=== PATIENT | female | born 1960 | race Caucasian/White ===

== ENCOUNTER 2017-08-16 16:21 | Observation (INO) | payer BC ==
[~2017-08-16] VITALS: Ht 160 cm; Wt 67.2 kg
[~2017-08-16 16:21] MED LIST: Colace PO; Effexor PO; Miralax, Glycolax PO; Motrin PO; Mylicon,Mylanta Gas, PO; Percocet 5/325,Endoc PO; SYNTHROID100 MCG PO
[2017-08-16 17:24] LABS: HEMATOCRIT 43.4 % (36.0-46.0); HEMOGLOBIN 15.3 G/DL (11.9-15.5); MCH 31.4 PG (29.0-34.0); MCHC 35.3 G/DL (30.0-36.0); MCV 88.9 FL (83-99); PLATELET COUNT 406 K/uL (156-360); RBC DIS.WIDTH-CV 11.9 % (11.8-14.6); RBC DIS.WIDTH-SD 38.5 % (39-53); RED BLOOD COUNT 4.88 M/uL (3.80-5.20); WHITE BLOOD COUNT 16.1 K/uL (4.1-10.2)
[2017-08-16 17:37] LABS: CHLORIDE 96 mEq/L (99-109); POTASSIUM 3.5 mEq/L (3.7-5.4); SODIUM 132 mEq/L (136-147)
[2017-08-16 17:39] LABS: GLUCOSE 125 mg/dL (70-99)
[2017-08-16 17:43] LABS: CREATININE 0.8 mg/dL (0.6-1.3); GFR ESTIMATE (CALCULATED) > 59 mL/min/
[2017-08-16 17:44] LABS: UREA NITROGEN (BUN) 10 mg/dL (9-23)
[2017-08-16 18:55] LABS: TROP-I INTERPRETATION NEGATIVE; TROPONIN-I < 0.01 ng/mL (0.0-0.30)
[2017-08-16] MEDS ORDERED: VITAMIN B-625 MG PO (19:34)
[2017-08-16] MEDS ORDERED: VIIBRYD40 MG PO (19:34)
[2017-08-16 22:40] VITALS: BP 110/60
[2017-08-17 01:14] LABS: TROP-I INTERPRETATION NEGATIVE; TROPONIN-I < 0.01 ng/mL (0.0-0.30)
[2017-08-17 04:00] VITALS: BP 104/58
[2017-08-17 05:36] LABS: HEMATOCRIT 43.4 % (36.0-46.0); HEMOGLOBIN 14.6 G/DL (11.9-15.5); MCH 30.5 PG (29.0-34.0); MCHC 33.6 G/DL (30.0-36.0); MCV 90.8 FL (83-99); PLATELET COUNT 390 K/uL (156-360); RBC DIS.WIDTH-CV 12.1 % (11.8-14.6); RBC DIS.WIDTH-SD 40.5 % (39-53); RED BLOOD COUNT 4.78 M/uL (3.80-5.20); WHITE BLOOD COUNT 8.1 K/uL (4.1-10.2)
[2017-08-17 05:53] LABS: TROP-I INTERPRETATION NEGATIVE; TROPONIN-I < 0.01 ng/mL (0.0-0.30)
[2017-08-17 06:23] LABS: CHLORIDE 105 MEQ/L (99-109)
[2017-08-17 06:26] LABS: POTASSIUM 4.4 MEQ/L (3.7-5.4); SODIUM 141 MEQ/L (136-147)
[2017-08-17 06:28] LABS: CREATININE 0.8 MG/DL (0.6-1.3); GFR ESTIMATE (CALCULATED) > 59 mL/min/; GLUCOSE 104 mg/dL (70-99); HDL CHOLESTEROL 63 MG/DL (Desirable>=50); LDL CHOLESTEROL 82 mg/dL (Desirable<100); NON-HDL CHOLESTEROL 94 mg/dL (Desirable<160); TOTAL CHOLESTEROL 157 mg/dL (Desirable<200); TRIGLYCERIDES 62 MG/DL (Normal: <150); UREA NITROGEN (BUN) 9 mg/dL (9-23)
[2017-08-17 08:06] VITALS: BP 123/79
[2017-08-17 08:12] LABS: THYROTROPIN (TSH) 5.4 MIU/L (0.4-5.5)
[2017-08-17 11:07] VITALS: BP 148/64
[2017-08-17 12:09] LABS: APPEARANCE CLEAR ((CLEAR)); BILIRUBIN NEGATIVE; BLOOD SMALL; COLOR STRAW ((YELLOW)); GLUCOSE (STRIP) NEGATIVE; KETONES NEGATIVE; LEUKOCYTES NEGATIVE; NITRITE NEGATIVE; PROTEIN (STRIP) NEGATIVE; SPECIFIC GRAVITY 1.006 (1.000-1.030); UROBILINOGEN 0.2 MG/DL (0.2-1.0)
[2017-08-17 12:12] LABS: BACTERIA NONE SEEN /HPF; EPITHELIAL CELLS RARE /HPF; MUCUS TRACE /LPF; RED BLOOD CELLS 0-5 /HPF (0-5); UCUL ADDED? NO; WHITE BLOOD CELLS 0-5 /HPF (0-5)
[2017-08-17] MEDS ORDERED: ASPIR-LOW81 MG PO (12:47)
[2017-08-17] MEDS ORDERED: LOPRESSOR25 MG PO (14:22)
[2017-08-18] MEDS ORDERED: ATIVAN1 MG PO (22:44)
== END 2017-08-17 16:36 | disposition home or self-care (01) ==
LOC: EME 16:21 → EDOF 20:35 → 5WEST 20:35 → EDOF 20:35 → ENRESERV 20:37 → 5WEST 21:18
PROVIDERS: Nurse Practitioner Family; Physician Assistant Medical
DX: R00.2 Palpitations (principal); R55 Syncope and collapse; R07.2 Precordial pain; R41.0 Disorientation, unspecified; D72.829 Elevated white blood cell count, unspecified; R79.89 Other specified abnormal findings of blood chemistry; E87.1 Hypo-osmolality and hyponatremia; E87.6 Hypokalemia; I47.1 Supraventricular tachycardia; R00.1 Bradycardia, unspecified; F41.9 Anxiety disorder, unspecified; E89.0 Postprocedural hypothyroidism; K21.9 Gastro-esophageal reflux disease without esophagitis; F17.210 Nicotine dependence, cigarettes, uncomplicated; Z90.710 Acquired absence of both cervix and uterus; Z82.49 Family history of ischemic heart disease and other diseases of the circulatory system; Z82.3 Family history of stroke
CPT/HCPCS: 70450; 71046; 80048; 80061; 81003; 83735; 84443; 84484; 85027; 85730; 93005; 93306; 95819; G0378; J1650; J3480; J7030

== ENCOUNTER 2017-08-18 17:31 | Emergency (ER) | payer BC ==
[~2017-08-18] VITALS: Ht 165.1 cm; Wt 69.4 kg
[~2017-08-18 17:31] MED LIST changes: +ASPIR-LOW81 MG PO; +LOPRESSOR25 MG PO; +VIIBRYD40 MG PO; +VITAMIN B-625 MG PO
[2017-08-18 18:54] LABS: HEMATOCRIT 44.2 % (36.0-46.0); HEMOGLOBIN 15.5 G/DL (11.9-15.5); MCH 31.4 PG (29.0-34.0); MCHC 35.1 G/DL (30.0-36.0); MCV 89.7 FL (83-99); PLATELET COUNT 397 K/uL (156-360); RBC DIS.WIDTH-SD 39.5 % (39-53); RED BLOOD COUNT 4.93 M/uL (3.80-5.20); WHITE BLOOD COUNT 13.2 K/uL (4.1-10.2)
[2017-08-18 19:06] LABS: CHLORIDE 105 mEq/L (99-109); POTASSIUM 3.6 mEq/L (3.7-5.4); SODIUM 139 mEq/L (136-147)
[2017-08-18 19:08] LABS: GLUCOSE 138 mg/dL (70-99)
[2017-08-18 19:11] LABS: SERUM ETHYL ALCOHOL < 10 mg/dL
[2017-08-18 19:12] LABS: CREATININE 0.8 mg/dL (0.6-1.3); GFR ESTIMATE (CALCULATED) > 59 mL/min/
[2017-08-18 19:13] LABS: UREA NITROGEN (BUN) 12 mg/dL (9-23)
[2017-08-18 20:37] LABS: AMPHETAMINE NEGATIVE (500 ng/mL); BARBITURATES NEGATIVE (200 ng/mL); BENZODIAZEPINES NEGATIVE (150 ng/mL); BUPRENORPHINE NEGATIVE (10 ng/mL); COCAINE NEGATIVE (150 ng/mL); METHADONE NEGATIVE (200 ng/mL); METHAMPHETAMINE NEGATIVE (500 ng/mL); OPIATES (MORPHINE) NEGATIVE (100 ng/mL); OXYCODONE NEGATIVE (100 ng/mL); PHENCYCLIDINE NEGATIVE (25 ng/mL); PROPOXYPHENE NEGATIVE (300 ng/mL); THC CANNABINOIDS NEGATIVE (50 ng/mL); TRICYCLIC ANTIDEPRESSANTS NEGATIVE (300 ng/mL)
[2017-08-18] MEDS ORDERED: ATIVAN1 MG PO (22:44)
[2017-08-18 23:00] VITALS: BP 93/63
== END 2017-08-18 23:00 | disposition home or self-care (01) ==
LOC: EME 17:31
PROVIDERS: Emergency Medicine Emergency Medical Services
DX: F32.9 Major depressive disorder, single episode, unspecified (principal); R44.0 Auditory hallucinations; F41.1 Generalized anxiety disorder; Z91.81 History of falling; E03.9 Hypothyroidism, unspecified; Z87.891 Personal history of nicotine dependence
CPT/HCPCS: 70450; 80048; 85027; 90839; G0480; J1630

== ENCOUNTER 2017-10-23 13:28 | Observation (INO) | payer BC ==
[~2017-10-23] VITALS: Ht 160 cm; Wt 69.2 kg
[~2017-10-23 13:28] MED LIST changes: +ATIVAN1 MG PO
[2017-10-23 14:50] LABS: HEMATOCRIT 45.8 % (36.0-46.0); HEMOGLOBIN 15.6 G/DL (11.9-15.5); MCH 31.4 PG (29.0-34.0); MCHC 34.1 G/DL (30.0-36.0); MCV 92.2 FL (83-99); PLATELET COUNT 330 K/uL (156-360); RBC DIS.WIDTH-CV 12.2 % (11.8-14.6); RBC DIS.WIDTH-SD 41.6 % (39-53); RED BLOOD COUNT 4.97 M/uL (3.80-5.20); WHITE BLOOD COUNT 9.6 K/uL (4.1-10.2)
[2017-10-23 14:58] LABS: CHLORIDE 105 mEq/L (99-109); POTASSIUM 3.8 mEq/L (3.7-5.4); SODIUM 143 mEq/L (136-147)
[2017-10-23 15:00] LABS: GLUCOSE 89 mg/dL (70-99)
[2017-10-23 15:03] LABS: SERUM ETHYL ALCOHOL < 10 mg/dL
[2017-10-23 15:04] LABS: CREATININE 0.8 mg/dL (0.6-1.3); GFR ESTIMATE (CALCULATED) > 59 mL/min/
[2017-10-23 15:05] LABS: UREA NITROGEN (BUN) 20 mg/dL (9-23)
[2017-10-23 16:09] LABS: AMPHETAMINE NEGATIVE (500 ng/mL); BARBITURATES NEGATIVE (200 ng/mL); BENZODIAZEPINES NEGATIVE (150 ng/mL); BUPRENORPHINE NEGATIVE (10 ng/mL); COCAINE NEGATIVE (150 ng/mL); METHADONE NEGATIVE (200 ng/mL); METHAMPHETAMINE NEGATIVE (500 ng/mL); OPIATES (MORPHINE) NEGATIVE (100 ng/mL); OXYCODONE NEGATIVE (100 ng/mL); PHENCYCLIDINE NEGATIVE (25 ng/mL); PROPOXYPHENE NEGATIVE (300 ng/mL); TRICYCLIC ANTIDEPRESSANTS NEGATIVE (300 ng/mL)
[2017-10-23 16:25] LABS: THC CANNABINOIDS NEGATIVE (50 ng/mL)
[2017-10-23 19:35] LABS: THYROTROPIN (TSH) 69.4 MIU/L (0.4-5.5)
[2017-10-24 01:54] VITALS: BP 80/42
[2017-10-24 03:36] VITALS: BP 123/53
[2017-10-24 07:36] VITALS: BP 94/59
[2017-10-24 09:17] LABS: C-REACTIVE PROTEIN 1.2 MG/L (0-10)
[2017-10-24 09:36] LABS: FOLIC ACID (FOLATE) 21.1 NG/ML (5.0-22.0)
[2017-10-24 11:13] VITALS: BP 83/46
[2017-10-24 17:06] VITALS: BP 106/56
[2017-10-24 20:22] VITALS: BP 93/51
[2017-10-25] VITALS: BP 114/57
[2017-10-25 08:35] VITALS: BP 116/56
[2017-10-25 09:48] VITALS: BP 92/53
[2017-10-25 12:47] VITALS: BP 96/55
[2017-10-25 18:02] VITALS: BP 103/60
[2017-10-25 20:00] VITALS: BP 80/60
[2017-10-26] VITALS (7 sets, daily range): BP systolic 93–112; BP diastolic 52–74
[2017-10-26 06:21] LABS: BASOPHIL (%) 0.5 % (0-1); EOSINOPHIL (%) 1.1 % (0-5); EOSINOPHIL COUNT 0.1 K/uL (0-0.3); HEMATOCRIT 40.4 % (36.0-46.0); IMMATURE GRANULOCYTE (%) 0.1 % (0.0-0.7); LYMPHOCYTE (%) 28.4 % (15-42); LYMPHOCYTE COUNT 2.1 K/uL (1.0-2.8); MCHC 33.4 G/DL (30.0-36.0); MCV 92.9 FL (83-99); MONOCYTE (%) 6.9 % (3-12); MONOCYTE COUNT 0.5 K/uL (0-0.8); NEUTROPHIL COUNT 4.6 K/uL (1.8-6.4); PLATELET COUNT 265 K/uL (156-360); RBC DIS.WIDTH-CV 12.4 % (11.8-14.6); RBC DIS.WIDTH-SD 42.7 % (39-53); RED BLOOD COUNT 4.35 M/uL (3.80-5.20); WHITE BLOOD COUNT 7.4 K/uL (4.1-10.2)
[2017-10-26 06:22] LABS: HEMOGLOBIN 13.5 G/DL (11.9-15.5)
[2017-10-26 06:37] LABS: CHLORIDE 107 MEQ/L (99-109); CREATININE 0.8 MG/DL (0.6-1.3); GFR ESTIMATE (CALCULATED) > 59 mL/min/; GLUCOSE 95 mg/dL (70-99); SODIUM 145 MEQ/L (136-147); UREA NITROGEN (BUN) 10 mg/dL (9-23)
[2017-10-26 16:57] LABS: CSF PROTEIN 54 mg/dL (15-45)
[2017-10-26 17:02] LABS: GLUCOSE, CSF 75 mg/dL (40-80)
[2017-10-26 17:27] LABS: APPEARANCE CLEAR/COLORLESS; CSF TUBE NUMBER TUBE #4
[2017-10-26 17:28] LABS: RED CELL COUNT 26 /MM^3 (0-1); WHITE CELL COUNT 2 /MM^3 (0-5)
[2017-10-26 17:38] LABS: CSF EOSINOPHILS ND % (0-25); MONONUCLEAR WBC'S ND % (50-90); POLYNUCLEAR WBC'S ND % (0-3)
[2017-10-26 22:58] LABS: APPEARANCE (RECHECK) CLEAR/COLORLESS; CSF TUBE NUMBER (RECHECK) TUBE #1; RED CELL COUNT (RECHECK) 1 /MM^3 (0-1)
[2017-10-27 03:24] VITALS: BP 118/59
[2017-10-27 07:27] VITALS: BP 118/65
[2017-10-27] MEDS ORDERED: ESCITALOPRAM OX10 MG PO (15:44)
== END 2017-10-27 16:54 | disposition home or self-care (01) ==
LOC: EME 13:28 → EDOF 10-24 00:05 → 5WEST 10-24 00:05 → ENRESERV 10-24 00:16 → 5WEST 10-24 01:47 → ENPENDDIS 10-27 → 5WEST 10-27 16:54
PROVIDERS: Emergency Medicine Emergency Medical Services; Hospitalist; Specialist
DX: F01.50 Vascular dementia, unspecified severity, without behavioral disturbance, psychotic disturbance, mood disturbance, and anxiety (principal); F32.9 Major depressive disorder, single episode, unspecified; F41.1 Generalized anxiety disorder; E89.0 Postprocedural hypothyroidism; Z91.14 Patient's other noncompliance with medication regimen; I47.1 Supraventricular tachycardia; K21.9 Gastro-esophageal reflux disease without esophagitis; F17.290 Nicotine dependence, other tobacco product, uncomplicated; Z90.710 Acquired absence of both cervix and uterus; Z82.49 Family history of ischemic heart disease and other diseases of the circulatory system; Z79.899 Other long term (current) drug therapy
CPT/HCPCS: 62270; 70553; 71046; 77003; 80048; 82040 90; 82042 90; 82607; 82746; 82784 90; 82945; 83873 90; 84157; 84439; 84443; 85025; 85027; 85651; 86038; 86140; 86235; 89051; 99281; 99285; G0378; G0480; J2060; J7030

== ENCOUNTER 2017-11-16 15:20 | Inpatient (IN) | payer BC ==
[~2017-11-16] VITALS: Ht 165.1 cm; Wt 59.1 kg
[~2017-11-16 15:20] MED LIST changes: +ESCITALOPRAM OX10 MG PO
[2017-11-16 16:21] LABS: BASOPHIL (%) 0.2 % (0-1); EOSINOPHIL (%) 0.2 % (0-5); HEMATOCRIT 42.6 % (36.0-46.0); HEMOGLOBIN 14.6 G/DL (11.9-15.5); IMMATURE GRANULOCYTE (%) 0.3 % (0.0-0.7); LYMPHOCYTE (%) 17.6 % (15-42); LYMPHOCYTE COUNT 1.1 K/uL (1.0-2.8); MCH 31.1 PG (29.0-34.0); MCHC 34.3 G/DL (30.0-36.0); MCV 90.6 FL (83-99); MONOCYTE (%) 4.4 % (3-12); MONOCYTE COUNT 0.3 K/uL (0-0.8); NEUTROPHIL (%) 77.3 % (45-76); NEUTROPHIL COUNT 4.9 K/uL (1.8-6.4); PLATELET COUNT 300 K/uL (156-360); RBC DIS.WIDTH-SD 40.1 % (39-53); WHITE BLOOD COUNT 6.4 K/uL (4.1-10.2)
[2017-11-16 16:31] LABS: CHLORIDE 104 mEq/L (99-109); POTASSIUM 3.8 mEq/L (3.7-5.4); SODIUM 143 mEq/L (136-147)
[2017-11-16 16:33] LABS: GLUCOSE 94 mg/dL (70-99)
[2017-11-16 16:36] LABS: SERUM ETHYL ALCOHOL < 10 mg/dL
[2017-11-16 16:37] LABS: CREATININE 0.8 mg/dL (0.6-1.3); GFR ESTIMATE (CALCULATED) > 59 mL/min/
[2017-11-16 16:39] LABS: UREA NITROGEN (BUN) 17 mg/dL (9-23)
[2017-11-16 16:40] LABS: ACETAMINOPHEN (TYLENOL) < 10 mcg/mL (10-30); SALICYLATE < 5.0 MG/DL (15-30)
[2017-11-16 17:27] LABS: THYROTROPIN (TSH) 25.6 MIU/L (0.4-5.5)
[2017-11-16 19:21] VITALS: BP 129/60
[2017-11-17 08:04] VITALS: BP 105/56
[2017-11-17 15:47] VITALS: BP 89/54
[2017-11-18 07:37] VITALS: BP 119/58
[2017-11-18 15:49] VITALS: BP 99/55
[2017-11-19 07:48] VITALS: BP 97/52
[2017-11-19 15:42] VITALS: BP 101/54
[2017-11-20 09:33] VITALS: BP 117/58
[2017-11-20 15:55] VITALS: BP 101/63
[2017-11-21 09:59] VITALS: BP 86/52
[2017-11-21 16:32] VITALS: BP 100/59
[2017-11-22 08:41] VITALS: BP 124/56
[2017-11-22 16:03] VITALS: BP 91/52
[2017-11-23 07:54] VITALS: BP 103/59
[2017-11-23 15:39] VITALS: BP 105/59
[2017-11-24 07:53] VITALS: BP 100/56
[2017-11-24 15:30] VITALS: BP 95/53
[2017-11-25 07:53] VITALS: BP 110/65
[2017-11-25 16:07] VITALS: BP 105/55
[2017-11-26 08:20] VITALS: BP 112/60
[2017-11-26 16:09] VITALS: BP 97/52
[2017-11-26 19:58] VITALS: BP 113/52
[2017-11-27 07:59] VITALS: BP 120/64
[2017-11-27 15:53] VITALS: BP 120/59
[2017-11-28 07:50] VITALS: BP 137/74
[2017-11-28 15:40] VITALS: BP 134/62
[2017-11-29 07:59] VITALS: BP 152/74
[2017-11-29 15:55] VITALS: BP 115/57
[2017-11-30 08:09] VITALS: BP 116/58
[2017-11-30 16:00] VITALS: BP 110/70
[2017-12-01 07:59] VITALS: BP 115/58
[2017-12-01 15:52] VITALS: BP 119/57
[2017-12-02 07:49] VITALS: BP 112/56
[2017-12-02 15:24] VITALS: BP 102/57
[2017-12-03 08:24] VITALS: BP 119/63
[2017-12-03 16:20] VITALS: BP 136/58
[2017-12-04 09:33] VITALS: BP 99/55
[2017-12-04] MEDS ORDERED: MIRTAZAPINE30 MG PO (13:03)
[2017-12-04] MEDS ORDERED: CLONAZEPAM1 MG PO (13:03)
[2017-12-04] MEDS ORDERED: QUETIAPINE FUM200 MG PO (13:03)
[2017-12-04] MEDS ORDERED: ESCITALOPRAM OX20 MG PO (13:03)
== END 2017-12-04 15:10 | DRG 885 ==
LOC: EME 15:20 → EDOF 16:11 → ENRESERV 19:00 → 1WEST 19:09
PROVIDERS: Physician Assistant
DX: F33.3 Major depressive disorder, recurrent, severe with psychotic symptoms (principal); R45.851 Suicidal ideations; F40.10 Social phobia, unspecified; Z91.19 Patient's noncompliance with other medical treatment and regimen; E89.0 Postprocedural hypothyroidism; Z87.891 Personal history of nicotine dependence; Z90.710 Acquired absence of both cervix and uterus; Z79.899 Other long term (current) drug therapy; Z82.49 Family history of ischemic heart disease and other diseases of the circulatory system
CPT/HCPCS: 80048; 81003; 84439; 84443; 85025; 90837; 97150 GO; 97167 GO; 99281; 99284; G0480